=== PATIENT | female | born 1970 | race Caucasian/White ===

== ENCOUNTER 2021-09-04 19:44 | Inpatient (IN) | payer MEDICAID ==
[~2021-09-04] VITALS: Ht 170.2 cm; Wt 80.3 kg
[2021-09-04] MEDS ORDERED: acetaminophen 325mg tablet PO PRN ×2 (23:25)
[2021-09-04] MEDS ORDERED: sodium phosphate inj. 30 MMOL in dextrose 5%-water 250 ML IV PRN (23:25)
[2021-09-04] MEDS ORDERED: potassium Cl 20 mEq SR tablet PO PRN (23:25)
[2021-09-04] MEDS ORDERED: magnesium hydroxide 30ml (MOM) UD suspension PO PRN (23:25)
[2021-09-04] MEDS ORDERED: potassium Cl 40MEQ/1/2NS 520ml 520 ML IV PRN ×2 (23:25)
[2021-09-04] MEDS ORDERED: Neutra Phos packet PO PRN (23:25)
[2021-09-04 23:40] LABS: BASOPHILS # (AUTO) 0.1 X10'3 (0-0.2); BASOPHILS % (AUTO) 0.4 % (0-1); EOSINOPHILS % (AUTO) 0 % (0-6); HEMATOCRIT 45.1 % (35.0-45.0); HEMOGLOBIN 15.2 g/dl (12.0-16.0); LYMPHOCYTES % (AUTO) 7.1 % (21-51); MEAN CORPUSCULAR HEMOGLOBIN 31.5 PG (27.0-31.0); MEAN CORPUSCULAR HGB CONC 33.7 g/dL (33.0-36.5); MEAN CORPUSCULAR VOLUME 93.5 FL (78-98); MEAN PLATELET VOLUME 10.1 FL (7.4-10.4); MONOCYTES % (AUTO) 15.2 % (2-12); NEUTROPHILS # (AUTO) 10.3 X10'3 (1.8-7.7); NEUTROPHILS % (AUTO) 77.3 % (42-75); PLATELET COUNT 181 X10'3 (140-440); RED BLOOD COUNT 4.82 X10'6 (4.20-5.60); RED CELL DISTRIBUTION WIDTH 12.6 % (11.5-14.5); WHITE BLOOD COUNT 13.3 X10'3 (4.5-11.0)
[2021-09-04 23:54] LABS: PARTIAL THROMBOPLASTIN TIME 27 SECONDS (22-32)
[2021-09-04 23:56] LABS: ALANINE AMINOTRANSFERASE 31 U/L (12-78); ALBUMIN 3.2 G/DL (3.4-5.0); ALBUMIN/GLOBULIN RATIO 0.7 (1.1-1.5); ALKALINE PHOSPHATASE 91 IU/L (46-116); ANION GAP 27 (8-16); ASPARTATE AMINO TRANSFERASE 19 U/L (10-37); BILIRUBIN,TOTAL 0.3 MG/DL (0.1-1.0); BLOOD UREA NITROGEN 17 MG/DL (7-18); BUN/CREATININE RATIO 12.2 (6.6-38.0); CHLORIDE 105 MMOL/L (99-107); CREATININE 1.39 MG/DL (0.40-0.90); GLUCOSE 383 MG/DL (70-104); MAGNESIUM 1.6 MG/DL (1.5-2.4); PHOSPHORUS 2.3 MG/DL (2.3-4.5); POTASSIUM 5.5 MMOL/L (3.5-5.1); SODIUM 140 MMOL/L (135-145); TOTAL PROTEIN 7.6 G/DL (6.4-8.2); eGFR 40 ML/MIN
[2021-09-05] VITALS (24 sets, daily range): BP systolic 89–136; BP diastolic 46–73
[2021-09-05 00:08] LABS: TOTAL CARBON DIOXIDE 8.5 MMOL/L (24-32)
[2021-09-05] MEDS: normal saline 1000ml 1,000 ML IV SCH ×3 (00:15→07:25)
[2021-09-05] MEDS ORDERED: potassium CL 10mEq/100ml bag 100 ML IV PRN (00:35)
[2021-09-05 00:41] LABS: ABG BASE EXCESS -22.6 mmol/L (-2.0-2.0); ABG HCO3 4.1 mmol/L (22.0-26.0); ABG OXYGEN SATURATION 97.5 % (94-97); ABG PCO2 (T) 12.7 mmHg (32.0-45.0); ABG PO2 (T) 103.3 mmHg (75.0-100.0); ALLEN'S TEST POSITIVE; FCOHb 0.5 % (0.0-3.9); FMetHb 0.1 % (0.0-1.5); FO2Hb 96.9 % (94-97); PATIENT TEMPERATURE 36.9; TOTAL HEMOGLOBIN 15.9 G/dl (12.0-16.0)
[2021-09-05 00:58] LABS: TOTAL CELLS COUNTED 100
[2021-09-05 01:00] LABS: PLATELET ESTIMATE NORMAL
[2021-09-05] MEDS: Insulin Reg/NS 100units/100mL 100 ML IV SCH ×2 (01:00→05:32)
[2021-09-05] MEDS: heparin, porcine 5000 units/ml vial SQ SCH ×3 (01:07→16:10)
[2021-09-05 04:11] LABS: ALBUMIN 3.3 G/DL (3.4-5.0); ANION GAP 25 (8-16); BLOOD UREA NITROGEN 17 MG/DL (7-18); BUN/CREATININE RATIO 12.1 (6.6-38.0); CALCIUM 8.1 MG/DL (8.5-10.1); CHLORIDE 109 MMOL/L (99-107); CREATININE 1.41 MG/DL (0.40-0.90); GLUCOSE 384 MG/DL (70-104); PHOSPHORUS 2.5 MG/DL (2.3-4.5); SODIUM 142 MMOL/L (135-145); eGFR 40 ML/MIN
[2021-09-05 04:13] LABS: POTASSIUM 4.7 MMOL/L (3.5-5.1)
[2021-09-05 04:27] LABS: TOTAL CARBON DIOXIDE 8.1 MMOL/L (24-32)
--- NOTE | 2021-09-05 07:44 | NUR ---
Initial: Pt transferred from previous facility w/ Covid and DKA per EMR. Admitting glucose 384 though no A1C at this time. Limited documentation at this time though pt on room air and currently NPO. No edema or wounds noted. Limited nutrition interventions available at this time given NPO status, will continue to monitor and make recommendations as appropriate. Recs: 1. Advance to [facility] diet as medically indicated 2. Monitor need for additional protein 3. Bowel care per rx 4. Weekly wts 5. Monitor need for DM ed pending A1C Addendum: 09/05/21 at [address] Amended: Links added.
[2021-09-05] MEDS: K and/or MAG REPLACEMENT MC SCH ×3 (08:00→19:46)
[2021-09-05] MEDS: docusate sod 100mg capsule PO SCH ×2 (08:00→19:44)
[2021-09-05 09:54] LABS: ALANINE AMINOTRANSFERASE 38 U/L (12-78); ALBUMIN 3.3 G/DL (3.4-5.0); ALBUMIN/GLOBULIN RATIO 0.7 (1.1-1.5); ALKALINE PHOSPHATASE 82 IU/L (46-116); ANION GAP 14 (8-16); ASPARTATE AMINO TRANSFERASE 29 U/L (10-37); BASOPHILS % (AUTO) 0.1 % (0-1); BILIRUBIN,TOTAL 0.3 MG/DL (0.1-1.0); BLOOD UREA NITROGEN 15 MG/DL (7-18); BUN/CREATININE RATIO 12.2 (6.6-38.0); CALCIUM 8.8 MG/DL (8.5-10.1); CHLORIDE 114 MMOL/L (99-107); CREATININE 1.23 MG/DL (0.40-0.90); EOSINOPHILS % (AUTO) 0 % (0-6); GLUCOSE 124 MG/DL (70-104); HEMOGLOBIN 15.4 g/dl (12.0-16.0); LYMPHOCYTES # (AUTO) 1.3 X10'3 (1.1-4.8); LYMPHOCYTES % (AUTO) 9.9 % (21-51); MEAN CORPUSCULAR HEMOGLOBIN 31.2 PG (27.0-31.0); MEAN CORPUSCULAR HGB CONC 34.1 g/dL (33.0-36.5); MEAN CORPUSCULAR VOLUME 91.5 FL (78-98); MEAN PLATELET VOLUME 9.8 FL (7.4-10.4); MONOCYTES # (AUTO) 2.4 X10'3 (0-0.9); NEUTROPHILS # (AUTO) 9.4 X10'3 (1.8-7.7); PLATELET COUNT 175 X10'3 (140-440); POTASSIUM 3.7 MMOL/L (3.5-5.1); RED BLOOD COUNT 4.92 X10'6 (4.20-5.60); RED CELL DISTRIBUTION WIDTH 12.5 % (11.5-14.5); SODIUM 142 MMOL/L (135-145); TOTAL PROTEIN 7.8 G/DL (6.4-8.2); WHITE BLOOD COUNT 13.1 X10'3 (4.5-11.0); eGFR 47 ML/MIN
[2021-09-05 09:59] LABS: HCG SERUM QL NEGATIVE; TOTAL CARBON DIOXIDE 14.3 MMOL/L (24-32)
[2021-09-05 10:09] LABS: MAGNESIUM 1.6 MG/DL (1.5-2.4)
[2021-09-05 10:29] LABS: PLATELET ESTIMATE NORMAL; TOTAL CELLS COUNTED 100
[2021-09-05] MEDS ORDERED: LORA-269 PO (10:32)
[2021-09-05] MEDS ORDERED: TRAZ-251 PO (10:37)
[2021-09-05] MEDS ORDERED: INSU100I31 SQ (10:37)
[2021-09-05] MEDS ORDERED: GABA600T13 PO (10:37)
[2021-09-05] MEDS ORDERED: MAGN400T39 PO (10:37)
[2021-09-05] MEDS ORDERED: ATOR20TA66 PO (10:37)
[2021-09-05] MEDS ORDERED: ESTR1TAB19 PO (10:37)
[2021-09-05] MEDS ORDERED: METF-436 PO (10:37)
[2021-09-05] MEDS ORDERED: OMEP40CA21 PO (10:37)
[2021-09-05] MEDS ORDERED: INSU100V40 SQ (10:37)
[2021-09-05 10:39] LABS: PHOSPHORUS 0.8 MG/DL (2.3-4.5)
[2021-09-05] MEDS ORDERED: LORazepam 2 mg/ml vial IM ONE (11:00)
[2021-09-05] MEDS ORDERED: LORazepam 2 mg/ml vial IV ONE (11:25)
[2021-09-05] MEDS: dextrose 5%-1/2 normal saline 1,000 ML IV SCH ×2 (11:26→17:02)
[2021-09-05 16:42] LABS: ALANINE AMINOTRANSFERASE 33 U/L (12-78); ALBUMIN 2.8 G/DL (3.4-5.0); ALBUMIN/GLOBULIN RATIO 0.7 (1.1-1.5); ALKALINE PHOSPHATASE 70 IU/L (46-116); ANION GAP 10 (8-16); ASPARTATE AMINO TRANSFERASE 27 U/L (10-37); BILIRUBIN,TOTAL 0.2 MG/DL (0.1-1.0); BLOOD UREA NITROGEN 14 MG/DL (7-18); BUN/CREATININE RATIO 13.6 (6.6-38.0); CHLORIDE 114 MMOL/L (99-107); CREATININE 1.03 MG/DL (0.40-0.90); GLUCOSE 149 MG/DL (70-104); SODIUM 142 MMOL/L (135-145); TOTAL CARBON DIOXIDE 17.7 MMOL/L (24-32); TOTAL PROTEIN 6.6 G/DL (6.4-8.2); eGFR 57 ML/MIN
[2021-09-05 16:45] LABS: POTASSIUM 2.9 MMOL/L (3.5-5.1)
[2021-09-05] MEDS: potassium Cl 20 mEq SR tablet PO PRN (16:57)
[2021-09-05] MEDS: ondansetron/PF 4mg/2ml inj IV PRN (19:55)
--- NOTE | 2021-09-05 20:00 | NUR ---
received report from KYREE Melissa
[2021-09-05] MEDS ORDERED: morphine 2 MG/ML inj. syringe IV PRN (20:30)
--- NOTE | 2021-09-05 20:30 | NUR ---
called doctor regarding patients throwing up and headache, patient requesting pain medication needing IV medication at this time.
[2021-09-06] VITALS (16 sets, daily range): BP systolic 92–120; BP diastolic 44–73
[2021-09-06] MEDS: heparin, porcine 5000 units/ml vial SQ SCH ×4 (00:04→23:39)
[2021-09-06] MEDS: potassium CL 20mEq in D5-1/2NS 1,000 ML IV PRN ×2 (00:08→05:40)
[2021-09-06] MEDS: dextrose 5%-1/2 normal saline 1,000 ML IV SCH ×2 (00:25→07:05)
[2021-09-06 03:21] LABS: BASOPHILS % (AUTO) 0.2 % (0-1); EOSINOPHILS % (AUTO) 0 % (0-6); HEMATOCRIT 36.1 % (35.0-45.0); HEMOGLOBIN 12.7 g/dl (12.0-16.0); LYMPHOCYTES # (AUTO) 1.9 X10'3 (1.1-4.8); LYMPHOCYTES % (AUTO) 16.9 % (21-51); MEAN CORPUSCULAR HEMOGLOBIN 31.4 PG (27.0-31.0); MEAN CORPUSCULAR HGB CONC 35.1 g/dL (33.0-36.5); MEAN CORPUSCULAR VOLUME 89.4 FL (78-98); MEAN PLATELET VOLUME 10.1 FL (7.4-10.4); MONOCYTES # (AUTO) 1.3 X10'3 (0-0.9); MONOCYTES % (AUTO) 11.8 % (2-12); NEUTROPHILS # (AUTO) 8.1 X10'3 (1.8-7.7); NEUTROPHILS % (AUTO) 71.1 % (42-75); PLATELET COUNT 158 X10'3 (140-440); RED BLOOD COUNT 4.04 X10'6 (4.20-5.60); RED CELL DISTRIBUTION WIDTH 12.5 % (11.5-14.5); WHITE BLOOD COUNT 11.4 X10'3 (4.5-11.0)
[2021-09-06 03:29] LABS: ALANINE AMINOTRANSFERASE 34 U/L (12-78); ALBUMIN 2.5 G/DL (3.4-5.0); ALBUMIN/GLOBULIN RATIO 0.7 (1.1-1.5); ALKALINE PHOSPHATASE 58 IU/L (46-116); ANION GAP 10 (8-16); ASPARTATE AMINO TRANSFERASE 31 U/L (10-37); BILIRUBIN,TOTAL 0.3 MG/DL (0.1-1.0); BLOOD UREA NITROGEN 8 MG/DL (7-18); C-REACTIVE PROTEIN 0.48 MG/DL (0.0-0.5); CALCIUM 7.7 MG/DL (8.5-10.1); CHLORIDE 115 MMOL/L (99-107); CREATININE 0.89 MG/DL (0.40-0.90); GLUCOSE 109 MG/DL (70-104); MAGNESIUM 1.4 MG/DL (1.5-2.4); PHOSPHORUS 1.5 MG/DL (2.3-4.5); SODIUM 143 MMOL/L (135-145); TOTAL CARBON DIOXIDE 17.8 MMOL/L (24-32); eGFR 68 ML/MIN
[2021-09-06] MEDS ORDERED: magnesium 2GM in 50ml NS 50 ML IV ONE (04:20)
--- NOTE | 2021-09-06 04:21 | NUR ---
doctor Stout called in regards to potassium and magnesium levels
[2021-09-06] MEDS: sodium phosphate inj. 15 MMOL in dextrose 5%-water 250 ML IV PRN ×2 (07:58→21:48)
[2021-09-06] MEDS: docusate sod 100mg capsule PO SCH ×2 (08:00→19:09)
[2021-09-06] MEDS: K and/or MAG REPLACEMENT MC SCH ×3 (08:09→20:00)
[2021-09-06 08:20] LABS: ALBUMIN 2.7 G/DL (3.4-5.0); ANION GAP 10 (8-16); BLOOD UREA NITROGEN 9 MG/DL (7-18); BUN/CREATININE RATIO 12.2 (6.6-38.0); CHLORIDE 115 MMOL/L (99-107); CREATININE 0.74 MG/DL (0.40-0.90); GLUCOSE 116 MG/DL (70-104); POTASSIUM 3.2 MMOL/L (3.5-5.1); SODIUM 143 MMOL/L (135-145); TOTAL CARBON DIOXIDE 17.9 MMOL/L (24-32); eGFR 84 ML/MIN
[2021-09-06 09:30] LABS: MAGNESIUM 1.9 MG/DL (1.5-2.4); PHOSPHORUS 1.5 MG/DL (2.3-4.5)
[2021-09-06] MEDS ORDERED: insulin Lispro (HumaLOG) vial - multi-dose SQ SCH ×3 (09:50→12:35)
[2021-09-06] MEDS ORDERED: insulin regular, human U-100 3ml vial - multi-dose SQ SCH (09:50)
[2021-09-06] MEDS: ondansetron/PF 4mg/2ml inj IV PRN (11:20)
[2021-09-06] MEDS: LORazepam 1 MG tablet PO PRN (12:01)
--- NOTE | 2021-09-06 13:38 | NUR ---
F/u 09/06: MARC jaquez/blanquita MEDRANO regarding A1C this admit as none at this time; MD agreeable during rounds this AM w/ rn relief charge aware. Addendum: 09/06/21 at [address] Amended: Links added.
[2021-09-06 14:02] LABS: HEMOGLOBIN A1C 9.6 % (4.5-6.2)
[2021-09-06] MEDS: gabapentin 300mg capsule PO SCH ×2 (14:38→21:47)
[2021-09-06] MEDS: sodium chloride 0.45% 1,000 ML IV SCH (14:39)
[2021-09-06] MEDS: magnesium oxide 400mg tablet PO SCH (15:53)
--- NOTE | 2021-09-06 17:54 | NUR ---
I spoke to Dr. Thomas he said okay to DC patient home insulin dose and per her on hyper/hypoglycemia protocol.
[2021-09-06] MEDS ORDERED: glucagon, human recombinant 1mg kit SUBCUT PRN (17:55)
[2021-09-06] MEDS ORDERED: MESSAGE TO PHARMACY PO ONE (17:55)
[2021-09-06] MEDS ORDERED: dextrose 50%-water 50ml dispensing syringe IV PRN ×2 (17:55)
[2021-09-06] MEDS ORDERED: dextrose ORAL solution 15 GM/59 ML bottle PO PRN ×2 (17:55)
[2021-09-06] MEDS: insulin Lispro (HumaLOG) vial - multi-dose SQ SCH (18:51)
[2021-09-06] MEDS: metFORMIN 500mg tablet PO SCH (19:09)
[2021-09-06] MEDS ORDERED: insulin glargine (Lantus) pen - multi-dose SQ SCH ×2 (21:00)
[2021-09-06] MEDS ORDERED: morphine 10 MG/5 ML UD oral solution PO PRN (21:35)
[2021-09-06] MEDS ORDERED: acetaminophen 325mg tablet PO PRN (21:35)
[2021-09-06] MEDS: insulin glargine (Lantus) pen - multi-dose SQ SCH (21:45)
[2021-09-06] MEDS: traZODone 50mg tablet PO SCH (21:47)
[2021-09-06 22:34] LABS: CLARITY,URINE SLIGHTLY CLOUDY (Clear); COLOR,URINE YELLOW (Yellow); GLUCOSE, URINE NEGATIVE (Neg); KETONES,URINE TRACE mg/dl (Neg); LEUKOCYTE ESTERASE ,URINE NEGATIVE (Neg); NITRITES, URINE NEGATIVE (Neg); OCCULT BLOOD,URINE NEGATIVE (Neg); PROTEIN,URINE NEGATIVE (Neg); UROBILINOGEN,URINE 0.2 E.U/dL (0.2-1.0)
[2021-09-06 22:42] LABS: UA COLLECTION TYPE NON-SPECIFIED
[2021-09-06 22:44] LABS: BACTERIA,URINE 2+ /HPF (Neg); MUCUS STRANDS FEW /LPF (Neg); RBC,URINE 0-2 /HPF (0-2); SQUAMOUS EPITHELIAL CELL,UR FEW /LPF (FEW); TRANSITIONAL EPI CELLS,URINE MODERATE /HPF
[2021-09-06 22:45] LABS: YEAST MANY /HPF (NEGATIVE)
[2021-09-07 02:00] VITALS: BP_SYST 125; BP_SYST 96; BP_DIAS 53; BP_DIAS 72
[2021-09-07 06:00] VITALS: BP 125/72
--- NOTE | 2021-09-07 06:33 | NUR ---
Patient in room ORTHO 4016. I have received report from KYREE Larsen and had the opportunity to ask questions and assume patient care.
[2021-09-07] MEDS: sodium chloride 0.45% 1,000 ML IV SCH (07:19)
[2021-09-07] MEDS: docusate sod 100mg capsule PO SCH ×2 (07:20→19:03)
[2021-09-07] MEDS: metFORMIN 500mg tablet PO SCH (07:20)
[2021-09-07] MEDS: atorvastatin 20mg tablet PO SCH (07:20)
[2021-09-07] MEDS: gabapentin 300mg capsule PO SCH ×3 (07:20→18:51)
[2021-09-07] MEDS: magnesium oxide 400mg tablet PO SCH (07:20)
[2021-09-07] MEDS: heparin, porcine 5000 units/ml vial SQ SCH ×2 (07:21→15:25)
[2021-09-07 07:56] LABS: BASOPHILS % (AUTO) 0.2 % (0-1); EOSINOPHILS % (AUTO) 0.1 % (0-6); HEMATOCRIT 34.9 % (35.0-45.0); HEMOGLOBIN 12.4 g/dl (12.0-16.0); LYMPHOCYTES # (AUTO) 1.8 X10'3 (1.1-4.8); LYMPHOCYTES % (AUTO) 27.6 % (21-51); MEAN CORPUSCULAR HEMOGLOBIN 31.2 PG (27.0-31.0); MEAN CORPUSCULAR HGB CONC 35.6 g/dL (33.0-36.5); MEAN CORPUSCULAR VOLUME 87.6 FL (78-98); MEAN PLATELET VOLUME 9.9 FL (7.4-10.4); MONOCYTES # (AUTO) 0.8 X10'3 (0-0.9); MONOCYTES % (AUTO) 11.7 % (2-12); NEUTROPHILS % (AUTO) 60.4 % (42-75); PLATELET COUNT 142 X10'3 (140-440); RED BLOOD COUNT 3.98 X10'6 (4.20-5.60); RED CELL DISTRIBUTION WIDTH 12.5 % (11.5-14.5); WHITE BLOOD COUNT 6.6 X10'3 (4.5-11.0)
[2021-09-07] MEDS ORDERED: magnesium oxide 400mg tablet PO SCH (08:00)
[2021-09-07] MEDS: K and/or MAG REPLACEMENT MC SCH ×2 (08:00→19:03)
[2021-09-07 08:08] LABS: ALANINE AMINOTRANSFERASE 32 U/L (12-78); ALBUMIN 2.3 G/DL (3.4-5.0); ALBUMIN/GLOBULIN RATIO 0.7 (1.1-1.5); ALKALINE PHOSPHATASE 77 IU/L (46-116); ANION GAP -7 (8-16); ASPARTATE AMINO TRANSFERASE 20 U/L (10-37); BILIRUBIN,TOTAL 0.6 MG/DL (0.1-1.0); BLOOD UREA NITROGEN 8 MG/DL (7-18); BUN/CREATININE RATIO 11.8 (6.6-38.0); CALCIUM 7.9 MG/DL (8.5-10.1); CHLORIDE 108 MMOL/L (99-107); CREATININE 0.68 MG/DL (0.40-0.90); GLUCOSE 316 MG/DL (70-104); MAGNESIUM 1.8 MG/DL (1.5-2.4); PHOSPHORUS 2.6 MG/DL (2.3-4.5); POTASSIUM 3.2 MMOL/L (3.5-5.1); SODIUM 123 MMOL/L (135-145); TOTAL CARBON DIOXIDE 22.2 MMOL/L (24-32); TOTAL PROTEIN 5.6 G/DL (6.4-8.2); eGFR > 90 ML/MIN
[2021-09-07] MEDS: insulin Lispro (HumaLOG) vial - multi-dose SQ SCH ×2 (09:12→13:35)
[2021-09-07 10:00] VITALS: BP 128/78
[2021-09-07] MEDS: potassium Cl 20 mEq SR tablet PO PRN (10:57)
[2021-09-07] MEDS: estradiol 1mg tablet PO SCH (10:58)
--- NOTE | 2021-09-07 11:39 | NUR ---
Page Sent PAGER ID: [phone] MESSAGE: Raeann [phone] Re: Mariola Reddy [id number] pt's sodium was 123 this morning. pt currently receiving 0.45% NS at 50 mL/hr.
[2021-09-07] MEDS: normal saline 1000ml 1,000 ML IV SCH (12:05)
--- NOTE | 2021-09-07 15:19 | NUR ---
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 Current A1c is 9.6%. Per physician note pt very weak and nauseated. Will f/u for DM education once pt more stable. DKA resolved per physician note. Diet has been advanced to CHO controlled and pt refusing first few meals, likely r/t nausea. [facility] 09/06. Will continue to follow closely and make recommendations as appropriate. Recommendations: 1. Continue CHO controlled diet 2. Monitor need for ONS/additional protein 3. Bowel care per rx 4. Weekly scaled wts 5. DM education once stable; A1c 9.6% Addendum: 09/07/21 at [address] Amended: Links added.
--- NOTE | 2021-09-07 17:16 | NUR ---
Page Sent PAGER ID: [phone] MESSAGE: Raeann [phone] Re: Mariola Reddy [phone] this is silly, but can I change the Tylenol for mild pain order from 1-325 mg tablet to 2 tablets please? Thank you!
[2021-09-07 18:00] VITALS: BP 107/63
--- NOTE | 2021-09-07 18:28 | NUR ---
Problems reprioritized. Patient report given, questions answered & plan of care reviewed with KYREE Norris.
--- NOTE | 2021-09-07 18:29 | NUR ---
PATIENT DOES NOT QUALIFY FOR POST PRANDIAL INSULIN. BS 133, MINIMAL INTAKE.
[2021-09-07] MEDS: LORazepam 1 MG tablet PO PRN (18:51)
[2021-09-07] MEDS: traZODone 50mg tablet PO SCH (18:51)
[2021-09-07] MEDS: insulin glargine (Lantus) pen - multi-dose SQ SCH (20:59)
[2021-09-07 22:00] VITALS: BP 125/65
[2021-09-08] MEDS: heparin, porcine 5000 units/ml vial SQ SCH ×2 (00:23→07:09)
[2021-09-08] MEDS: normal saline 1000ml 1,000 ML IV SCH (01:03)
[2021-09-08 02:00] VITALS: BP 117/63
[2021-09-08 06:00] VITALS: BP 129/73
--- NOTE | 2021-09-08 06:05 | NUR ---
received report from susy arenas
[2021-09-08] MEDS: gabapentin 300mg capsule PO SCH ×2 (07:08→13:24)
[2021-09-08] MEDS: magnesium oxide 400mg tablet PO SCH (07:09)
[2021-09-08] MEDS: atorvastatin 20mg tablet PO SCH (07:09)
[2021-09-08] MEDS: estradiol 1mg tablet PO SCH (07:14)
[2021-09-08] MEDS: docusate sod 100mg capsule PO SCH (07:15)
[2021-09-08 07:30] LABS: ALANINE AMINOTRANSFERASE 27 U/L (12-78); ALBUMIN 2.3 G/DL (3.4-5.0); ALBUMIN/GLOBULIN RATIO 0.7 (1.1-1.5); ALKALINE PHOSPHATASE 81 IU/L (46-116); ANION GAP 8 (8-16); ASPARTATE AMINO TRANSFERASE 16 U/L (10-37); BILIRUBIN,TOTAL 0.7 MG/DL (0.1-1.0); BLOOD UREA NITROGEN 8 MG/DL (7-18); BUN/CREATININE RATIO 12.9 (6.6-38.0); CHLORIDE 112 MMOL/L (99-107); CREATININE 0.62 MG/DL (0.40-0.90); GLUCOSE 235 MG/DL (70-104); MAGNESIUM 1.9 MG/DL (1.5-2.4); SODIUM 144 MMOL/L (135-145); TOTAL CARBON DIOXIDE 24.1 MMOL/L (24-32); TOTAL PROTEIN 5.8 G/DL (6.4-8.2); eGFR > 90 ML/MIN
[2021-09-08 07:41] LABS: BASOPHILS % (AUTO) 0.4 % (0-1); EOSINOPHILS % (AUTO) 0.3 % (0-6); HEMOGLOBIN 12.4 g/dl (12.0-16.0); LYMPHOCYTES % (AUTO) 34.3 % (21-51); MEAN CORPUSCULAR HEMOGLOBIN 31.3 PG (27.0-31.0); MEAN CORPUSCULAR HGB CONC 35.4 g/dL (33.0-36.5); MEAN CORPUSCULAR VOLUME 88.2 FL (78-98); MEAN PLATELET VOLUME 10.4 FL (7.4-10.4); MONOCYTES # (AUTO) 0.7 X10'3 (0-0.9); MONOCYTES % (AUTO) 12.3 % (2-12); NEUTROPHILS # (AUTO) 3.1 X10'3 (1.8-7.7); NEUTROPHILS % (AUTO) 52.7 % (42-75); PLATELET COUNT 144 X10'3 (140-440); RED BLOOD COUNT 3.97 X10'6 (4.20-5.60); RED CELL DISTRIBUTION WIDTH 12.3 % (11.5-14.5); WHITE BLOOD COUNT 5.9 X10'3 (4.5-11.0)
[2021-09-08] MEDS: K and/or MAG REPLACEMENT MC SCH (08:00)
[2021-09-08] MEDS: insulin Lispro (HumaLOG) vial - multi-dose SQ SCH (08:56)
[2021-09-08 10:00] VITALS: BP 130/70
--- NOTE | 2021-09-08 13:35 | NUR ---
pt did not eat her lunch and her bg is 129, therefore she is not a candidate for insulin at this time, continue to monitor
--- NOTE | 2021-09-08 15:00 | NUR ---
pt d/c with instructions, understanding of instructions and w/all belongings in wheelchair accompanied by nursing staff to private vehicle to go home and f/u w/pcp
== END 2021-09-08 14:50 | disposition home or self-care (01) | DRG 137 ==
LOC: UNDOADMIN 19:44 → CICU 2S 19:44 → ORTHO 4S 09-06 13:40
PROVIDERS: ADMIT Student in an Organized Health Care Education/Training Program; ATTEND Student in an Organized Health Care Education/Training Program
DX: U07.1 COVID-19 (principal); E11.10 Type 2 diabetes mellitus with ketoacidosis without coma; E87.1 Hypo-osmolality and hyponatremia; E78.5 Hyperlipidemia, unspecified; E87.6 Hypokalemia; Z78.9 Other specified health status
CPT/HCPCS: 36415; 36600; 71045; 80048; 80053; 81001; 82800; 82803; 82948; 83036; 83605; 83735; 84100; 84145; 84703; 85007; 85018; 85025; 85610; 85730; 86140; 87081; 87088; 87635; G0378; J1644; J1815; J2060; J2270; J2405; J3475; J3480; J3490; J7030; J7042; J7060